=== PATIENT | female | born 1975 | race Caucasian/White ===

== ENCOUNTER → 2016-12-17 | Outpatient (CLI) | payer BC ==
--- NOTE | 2016-12-17 14:19 | RAD ---
Left knee radiograph 12/17/2016 at 1213 hours Indication: Nontraumatic pain. Patient states popping in left knee. Comparison: None available Technique: 3 views of the left knee are provided. Findings: No significant joint space narrowing. Mild osteophytosis in the medial and lateral femorotibial compartments. Bone mineralization appears to be within normal limits. No acute fracture or dislocation. There is a small to moderate knee joint effusion. Impression: 1. Small to moderate knee joint effusion. 2. Mild osteoarthrosis of the knee.
== END | disposition home or self-care (01) ==
LOC: RAD 11:55
PROVIDERS: ATTEND Internal Medicine
DX: M17.12 Unilateral primary osteoarthritis, left knee (principal); M25.462 Effusion, left knee
CPT/HCPCS: 73562